=== PATIENT | female | born 1995 | race Caucasian/White ===

== ENCOUNTER 2023-05-15 16:06 | Emergency (ER) | payer OTHER, SELFPAY ==
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
[2023-05-15 16:20] VITALS: BP 141/87; PULSE 119; RESP 20; TEMP 36.8; O2SAT 100
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
== END 2023-05-15 17:40 | disposition home or self-care (01) ==
PROVIDERS: Emergency Provider Registered Nurse
DX: S22.32XA Fracture of one rib, left side, initial encounter for closed fracture (principal); S40.012A Contusion of left shoulder, initial encounter; S20.223A Contusion of bilateral back wall of thorax, initial encounter; S40.021A Contusion of right upper arm, initial encounter; S20.212A Contusion of left front wall of thorax, initial encounter; S00.83XA Contusion of other part of head, initial encounter; Y04.2XXA Assault by strike against or bumped into by another person, initial encounter; F17.290 Nicotine dependence, other tobacco product, uncomplicated; F41.9 Anxiety disorder, unspecified
CPT/HCPCS: 71111; 73000; 99204; G0463

== ENCOUNTER 2024-09-01 12:41 | Emergency (ER) | payer BC, SELFPAY ==
--- OUTSIDE RECORDS SUMMARY | 2024-09-01 12:43 | XMS_ITS | Clinical Summary ---
Author Organization [facility] Address [address] [place] [address] Care Team Providers Care Materials Manager Name Role Phone Campos Brooke MD Unavailable Zechariah Olea MD Unavailable [phone] Darcy Barajas NP Primary Care Provider [phone] Allergies Active Allergy Reactions Criticality Noted Date Comments Amoxicillin Rash Medium 08/31/2017 Sulfamethoxazole-Trimethopri m Rash Medium 01/17/2020 Lamotrigine Unknown 10/22/2019 [place] Anaphylaxis,Chest tightness,Hives,Itching,R sahil,Shortness of breath,Swelling,Swollen tongue High 08/01/2019 [place] Extract Rash Medium 10/20/2019 Medications ALPRAZolam (XANAX) 1 mg tablet 2 Active methylphenidate HCl (RITALIN) 20 mg tablet Take 1 tablet (20 mg total) by mouth 2 (two) times a day 60 tablet 5 Active methylphenidate HCl (RITALIN) 20 mg tablet Take 1 tablet (20 mg total) by mouth 2 (two) times a day 60 tablet 5 09/01/19 25 Discontinu ed(Reorder ) Active Problems Problem Noted Date Diagnosed Date Narcolepsy and cataplexy 05/21/2023 Migraine without aura and wi th status migrainosus, not intractable 05/21/2023 Hypertension 05/20/2020 Overview (07/02/2020): 24 hr protein 480 Influenza vaccine refused 02/12/2020 Folliculitis 02/12/2020 Assessment & Plan (02/12/2020 5:45 PM CDT): Referred to dermatology per patient's request. 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 deficiency due to repeated infections and inflammatory reactions Avoid Vaping until completely healed Cheek mass 11/29/2019 Assessment & Plan (01/16/2020 2:13 PM CDT): Continue Doxycycline Continue Peridex Take Probiotic 4 hours in between antibiotics Zofran as needed Assessment & Plan (11/29/2019 5:05 PM CDT): Excision intraorally of 1 cm x 1 cm left cheek mass Risks and complications: Anesthesia, bleeding, infection, benign versus malignant pathology, recurrence of lesion, injury to arteries, nerves and veins, scarring and need for further treatment Facial abscess 10/30/2019 Assessment & Plan (11/29/2019 11:44 AM CDT): Excision intraorally of 1 cm x 1 cm left cheek mass Risks and complications: Anesthesia, bleeding, infection, benign versus malignant pathology, recurrence of lesion, injury to arteries, nerves and veins, scarring and need for further treatment Assessment & Plan (10/30/2019 7:42 AM CDT): Slowly improving. Referred to plastic surgeon for further evaluation. Vitamin D deficiency 04/20/2019 Assessment & Plan (08/01/2019 4:32 PM CDT): Consider trying vitamin D in a different form such as gummies. Assessment & Plan (04/20/2019 8:55 AM ELOCUTION TEACHER): Rx given, repeat lab in 8 weeks. BMI 20.0-20.9, adult 04/20/2019 Resolved Problems Problem Noted Date Diagnosed Date Resolved Date Unintentional weight loss 04/20/2019 Assessment & Plan (04/20/2019 8:56 AM ELOCUTION TEACHER): Most likely secondary to medications and the fact that she's an avid runner. Snack throughout the day if possible. 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 Knee pain 02/04/2011 04/20/2019 Immunizations Immunization Administration Dates Next Due DTP / HiB 1995,1995,1995 DTaP 12/31/2000,09/12/1996 HPV, Quadrivalent 06/07/2013,03/23/2013 Hep A, Pediatric 03/23/2013 Hep B, Adolescent or Pediatric 07/11/2010,1995,1995 Hep B, Unspecified 1995 HiB 06/20/1996 IPV 12/31/2000 Influenza, Quadrivalent, Spl it, Intramuscular 03/11/2009,03/12/2008 Influenza, Split 03/11/2009,03/12/2008 Influenza, Unspecified 03/13/2019(Deferr ed: Patient Refused),03/06/2019,02/28/2018, 017 MMR 12/31/2000,04/19/1997,06/20/1996 Meningococcal Conjugate (Menveo) 09/03/2015 Meningococcal MCV4, Unspecified 11/07/2007 Meningococcal MCV4P (Menactra) 11/07/2007 OPV 09/12/1996,1995,1995 Tdap 08/14/2020,01/24/2016 Surgical History Surgery Date Site/Laterality Comments KNEE SURGERY KNEE ARTHROSCOPY TONSILLECTOMY WISDOM TOOTH EXTRACTION ABCESS DRAINAGE 05/17/2019 - 05/16/2020 face Medical History Medical History Date Comments Migraine Anxiety Depression Jaundice Pneumonia Allergic rhinitis Urinary tract infection PONV (postoperative nausea and vomiting) Allergies Elbow fracture Finger fracture Narcolepsy Recurrent sinus infections Bipolar disorder (HCC) Family History Medical History Relation Name Comments Cancer Brother Diabetes Father Hypertension Father Cancer Maternal Grandfather Diabetes Maternal Grandfather Hypertension Maternal Grandfather Cancer Mother Hypertension Mother Migraines Mother Hypertension Mother's Sister Migraines Mother's Sister Seizures Mother's Sister Relation Name Status Comments Brother Father Alive Maternal Grandfather Mother Alive Mother's Sister Social History Tobacco Use Types Packs/Day Years Used Date Smoking Tobacco: Former Vaping Smokeless Tobacco: Never Tobacco Cessation:Counseling Given: Not Answered Comments:Vapes Alcohol Use Standard Drinks/Week Comments Yes 0 (1 standard drink = 0.6 oz pur e alcohol) PHQ-2 Answer Date Recorded PHQ-2 Total Score (If total score is 3 or more points, staff should administer the PHQ-9) 0 02/12/2020 Comments Unknown Sex and Gender Information Value Date Recorded Sex Assigned at Not on file Legal Sex Female 11:29 PM ELOCUTION TEACHER Gender Identity Female 07/21/2021 12:57 PM ELOCUTION TEACHER Sexual Orientation Straight 07/02/2019 7: 20 PM ELOCUTION TEACHER Obstetrics History Para Term AB IAB SAB Ectopic Multiple Livin g Live Births 1 Date Outcome GA Total Labor Labor/2nd/3rd Weight Sex Type Anes PTL Colette A1 A5 Name Clin Last Filed Vital Signs Vital Sign Reading Time Taken Comments Blood Pressure 121/83 04/04/2024 8:58 AM ELOCUTION TEACHER Pulse 80 04/04/2024 8:58 AM ELOCUTION TEACHER Temperature 36.7 C (98.1 F) 04/20/2023 6:29 PM ELOCUTION TEACHER Respiratory Rate 18 05/21/2023 11:04 AM ELOCUTION TEACHER Oxygen Saturation 98% 04/04/2024 8:58 AM ELOCUTION TEACHER Inhaled Oxygen Concentration - - Weight 59 kg (130 lb) 04/04/2024 8:58 AM ELOCUTION TEACHER Height 157.5 cm (5' 2 ) 04/04/2024 8:58 AM ELOCUTION TEACHER Body Mass Index 23.78 04/04/2024 8:58 AM ELOCUTION TEACHER Plan of Treatment Health Maintenance Due Date Last Done Comments Hepatitis C Screening 1995 HPV Vaccines (3 - 3-dose series) 09/20/2013 06/07/2013, 03/23/2013 Cervical Cancer Screening 08/31/2018 08/31/2017 Regular Well Visit/Exam 18-64 07/31/2020 08/01/2019 Depression Screening 02/11/2021 02/12/2020, 10/26/2019, 08/01/2019, Additional history exists Influenza Vaccine (Season Ended) 2025 03/06/2019, 02/28/2018, 01/28/2017, Additional history exists DTaP/Tdap/Td Vaccine (9 - Td or Tdap) 08/14/2030 08/14/2020, 01/24/2016, 11/20/2005, Additional history exists Hepatitis B Screening Completed 07/11/2010 , 1995, 1995, Additional history exists Pneumococcal vaccine <65 Aged Out No longer eligible based on patient's age to complete this topic Varicella Vaccines Discontinued Procedures Procedure Name Priority Date/Time Associated Diagnosis Comments PAP SMEAR WITH HPV Routine 08/31/2017 from Last 3 Months or Most Recently Relevant to Health Maintenance Results * PAP SMEAR WITH HPV (08/31/2017) Pap smear Normal Historical Provider HEALTH MAINTENANCE Final Result from Last 3 Months or Most Recently Relevant to Health Maintenance Insurance [facility] [employer] Care Teams Materials Manager Relationship Specialty Start Date End Date Darcy Barajas [address] [place] [address] PCP - General Family Medicine 04/04/24 Campos Brooke MD Consulting Physician Neurology 07/21/21 Zechariah Olea MD [address] [place] [id number] Referring Physician Obstetrics and Gynecology 07/21/21
--- OUTSIDE RECORDS SUMMARY | 2024-09-01 12:43 | XMS_ITS | Clinical Summary ---
Author Organization [facility] Address [address] [place] [address] Phone Care Team Providers Care Clinical Support Associate Name Role Phone Darcy Barajas TOY ASSEMBLY SUPERVISOR, FRONT DESK ADMINISTRATOR Primary Care Provider + Allergies Active Allergy Reactions Criticality Noted Date Comments Amoxicillin Rash Medium 08/31/2017 Codeine Anaphylaxis High 08/31/2017 Lamotrigine Unknown 10/22/2019 [place] Extract Rash,Anaphylaxis,Hiv e s,Itching,Shortness of Breath,Swelling High 08/01/2019 Other reaction(s): Chest tightness, Swollen tongue, Urticaria Sulfa Antibiotics Rash High 04/18/2020 Sulfamethoxazole-Trime thoprim Rash Medium 01/17/2020 Medications ALPRAZolam (XANAX) 1 MG Tablet 4 Active amphetamine-dex troamphetamine (ADDERALL) 20 MG Tablet Take 20 mg by mouth. 4 Active Drospirenone-Et hinyl Estradiol 3-0.03 MG TabletIndicatio ns:Dysmenorrhea Take 1 Tablet by mouth daily. Indications: Pain During Periods 28 Tablet 4 Active fluticasone (FLONASE) 50 MCG/ACT SuspensionIndic ations:Seasonal allergies 1-2 Sprays by Nasal route daily. 1-2 sprays each nostril daily for nasal congestion and allergies. 15.8 mL 4 Active Active Problems Problem Noted Date Diagnosed Date Anxiety 07/19/2023 Immunizations Immunization Administration Dates Next Due [id number] [place] MCV4, Unspecified Formulation 10/16 DTAP VACCINE 12/31/2000,09/12/1996 DTP-Hib 1995,1995,1995 Hepatitis A Vaccine, Pediatr ic/adolescent, 2 Dose Schedule 03/23/2013 Hepatitis B Vaccine, Pediatric/adolescent 2010,1995,1995 Hepatitis B Vaccine,unspecified Formulation 02/16 Hib Vaccine,unspecified Formulation 06/20/1996 Human Papillomavirus Vaccine (HPV), quadrivalent 06/07/2013,03/23/2013 Inactivated Polio Vaccine 12/31/2000 Influenza Vaccine,unspecified Formulation 2018,02/28/2018,01/28/2017 MMR Vaccine 12/31/2000,04/19/1997,06/20/1996 Meningococcal MCV4O 09/03/2015 OPV 09/12/1996,1995,1995 TDAP Vaccine 08/14/2020,11/20/2005 Social History Tobacco Use Types Packs/Day Years Used Date Smoking Tobacco: Never Smokeless Tobacco: Never Alcohol Use Standard Drinks/Week Comments Not Currently 0 (1 standard drink = 0.6 oz pur e alcohol) [facility] Ufreeities Answer Date Recorded In the past 12 months has [employer], gas, oil, or water [employer] threatened to shut off services in your home? Yes 07/08/2023 Social Connection and Isolat ion Panel [NHANES] Answer Date Recorded In a typical week, how many times do you talk on the phone with family, friends, or neighbors? More than three times a week 07/08/2023 How often do you get togethe r with friends or relatives? Three times a week 07/08/2023 How often do you attend chur ch or baptist services? 1 to 4 times per year 07/08/2023 Do you belong to any clubs o r organizations such as christian groups, unions, fraternal or athletic groups, or school groups? No 07/08/2023 How often do you attend meet ings of the clubs or organizations you belong to? Never 07/08/2023 Are you , , di vorced, , never , or living with a partner? 07/08/2023 AUDIT-C Answer Date Recorded Q1: How often do you have a drink containing alc ohol? Monthly or less 07/08/2023 Q2: How many drinks containi ng alcohol do you have on a typical day when you are drinking? 1 or 2 07/08/2023 Q3: How often do you have si x or more drinks on one occasion? Less than monthly 07/08/2023 Overall Financial Resource Strain (CARDIA) Answe r Date Recorded How hard is it for you to pa y for the very basics like food, housing, medical care, and heating? Somewhat hard 07/08/2023 PHQ-2 Answer Date Recorded Total Score - Questions 1-9 18 /0 08/2023 [facility] - Occupational Stress Questionnaire Answer Date Recorded Do you feel stress - tense, restless, nervous, or anxious, or unable to sleep at night because your mind is troubled all the time - these days? Rather much 07/08/2023 Exercise Vital Sign Answer Date Recorde d On average, how many days pe r week do you engage in moderate to strenuous exercise (like a brisk walk)? 3 days 07/08/2023 On average, how many minutes do you engage in exercise at this level? 40 min 07/08/2023 Hunger Vital Sign Answer Date Recorded Within the past 12 months, y ou worried that your food would run out before you got the money to buy more. Sometimes true Within the past 12 months, t he food you bought just didn't last and you didn't have money to get more. Sometimes true PRAPARE - Transportation Answer Date Re corded In the past 12 months, has l ack of transportation kept you from medical appointments or from getting medications? No 06/18 In the past 12 months, has l ack of transportation kept you from meetings, work, or from getting things needed for daily living? No 07/08/2023 Housing Stability Vital Sign Answer Dhaval e Recorded In the last 12 months, was t here a time when you were not able to pay the mortgage or rent on time? Yes 07/08/2023 In the last 12 months, how many places have you lived? 1 07/08/2023 In the last 12 months, was t here a time when you did not have a steady place to sleep or slept in a fci (including now)? No 07/08/2023 Sexually Active Control Partners Comments Not Currently Male Comments No Sex and Gender Information Value Date Recorded Sex Assigned at Not on file Legal Sex Female 10:01 PM CDT Gender Identity Not on file Sexual Orientation Not on file Last Filed Vital Signs Vital Sign Reading Time Taken Comments Blood Pressure 106/74 07/12/2023 10:04 AM LOAD CHECKER Pulse 86 07/12/2023 10:04 AM LOAD CHECKER Temperature 36.3 C (97.4 F) 07/12/2023 10:04 AM LOAD CHECKER Respiratory Rate 16 07/12/2023 10:04 AM LOAD CHECKER Oxygen Saturation 100% 07/12/2023 10:04 AM LOAD CHECKER Inhaled Oxygen Concentration - - Weight 54.7 kg (120 lb 9.6 oz) 07/12/2023 10:04 AM LOAD CHECKER Height 162.6 cm (5' 4 ) 07/12/2023 10:04 AM LOAD CHECKER Body Mass Index 20.7 07/12/2023 10:04 AM LOAD CHECKER Plan of Treatment Health Maintenance Due Date Last Done Comments Hepatitis C Virus (HCV) Screening 1995 Pap Smear 2016 SARS-COV-2 Immunization ( season) 2024 Influenza Immunization (Season Ended) 2025 03/06/2019, 02/28/2018, 01/28/2017, Additional history exists DTaP/Tdap/Td Immunization (9 - Td or Tdap) 08/14/2030 08/14/2020, 01/24/2016, 11/20/2005, Additional history exists Respiratory Syncytial Virus (RSV) Immunization (Adult) (1 - 1-dose 75+ series) 2070 Hepatitis B Immunization Completed 011, 1995, 1995, Additional history exists Human Papillomavirus (HPV) Immunization Discontinued 06/07/2013, 03/23/2013 Meningococcal Immunization (ACWY) Aged Out 09/03/2015, 11/07/2007 No longer eligibl e based on patient's age to complete this topic Pneumococcal Immunization Combined Aged Out No longer eligible based on patient's age to complete this topic Rotavirus Immunization Aged Out No lo nger eligible based on patient's age to complete this topic Care Teams Clinical Support Associate Relationship Specialty Start Date End Date Darcy Barajas, TOY ASSEMBLY SUPERVISOR, FRONT DESK ADMINISTRATOR [address] [place] [address] PCP - General Advanced Practice Nurse 07/12/23
--- OUTSIDE RECORDS SUMMARY | 2024-09-01 12:43 | XMS_ITS | Referral Summary ---
Author Organization [facility] Address [address] [place] [address] Care Team Providers Care Body Recall Instructor Name Role Phone Campos Brooke MD Unavailable Zechariah Olea MD Unavailable [phone] Darcy Barajas NP Primary Care Provider [phone] Allergies Active Allergy Reactions Criticality Noted Date Comments Amoxicillin Rash Medium 08/31/2017 Sulfamethoxazole-Trimethopri m Rash Medium 01/17/2020 Lamotrigine Unknown 10/22/2019 [place] Anaphylaxis,Chest tightness,Hives,Itching,R sahil,Shortness of breath,Swelling,Swollen tongue High 08/01/2019 [place] Extract Rash Medium 10/20/2019 Medications ALPRAZolam (XANAX) [...] gummies. Assessment & Plan (04/20/2019 8:55 AM COIL BUILDER): Rx given, repeat lab in 8 weeks. BMI 20.0-20.9, adult 04/20/2019 Resolved Problems Problem Noted Date Diagnosed Date Resolved Date Unintentional weight loss 04/20/2019 Assessment & Plan (04/20/2019 8:56 AM COIL BUILDER): Most likely secondary to medications and the [...] MCV4P (Menactra) 11/07/2007 OPV 09/12/1996,1995,1995 Tdap 08/14/2020,01/24/2016 Social History Tobacco Use Types Packs/Day Years [...] on file Legal Sex Female 11:29 PM COIL BUILDER Gender Identity Female 07/21/2021 12:57 PM COIL BUILDER Sexual Orientation Straight 07/02/2019 7: 20 PM COIL BUILDER Last Filed Vital Signs Vital Sign Reading Time Taken Comments Blood Pressure 121/83 04/04/2024 8:58 AM COIL BUILDER Pulse 80 04/04/2024 8:58 AM COIL BUILDER Temperature 36.7 C (98.1 F) 04/20/2023 6:29 PM COIL BUILDER Respiratory Rate 18 05/21/2023 11:04 AM COIL BUILDER Oxygen Saturation 98% 04/04/2024 8:58 AM COIL BUILDER Inhaled Oxygen Concentration - - Weight 59 kg (130 lb) 04/04/2024 8:58 AM COIL BUILDER Height 157.5 cm (5' 2 ) 04/04/2024 8:58 AM COIL BUILDER Body Mass Index 23.78 04/04/2024 8:58 AM COIL BUILDER Plan of Treatment Not on file Procedures Procedure Name Priority Date/Time Associated Diagnosis Comments PAP SMEAR WITH HPV Routine 08/31/2017 from Last 3 Months or Most Recently Relevant to Health Maintenance Results * PAP SMEAR WITH HPV (08/31/2017) Pap smear Normal Historical Provider HEALTH MAINTENANCE Final Result from Last 3 Months or Most Recently Relevant to Health Maintenance [place] [employer] [place] [employer] [place] Care Teams Body Recall Instructor Relationship Specialty Start Date End Date Darcy Barajas [address] [place] [address] PCP - General Family Medicine 04/04/24 Campos Brooke MD Consulting Physician Neurology 07/21/21 Zechariah Olea MD [address] [address] Referring Physician Obstetrics and Gynecology 07/21/21
[2024-09-01 12:56] VITALS: BP 152/82; PULSE 110; RESP 16; TEMP 36.6; O2SAT 100
--- NOTE | 2024-09-01 13:48 | ED.URI ---
HPI - URI/Sore Throat General Chief Complaint: Upper Respiratory Infection Stated Complaint: Sinus Problem Time Seen by Provider: 09/01/24 13:48 Source: patient, RN notes reviewed and old records reviewed Mode of arrival: ambulatory Limitations: no limitations History of Present Illness HPI Narrative: 29 year old female who presents to [facility] with complaints of sinus congestion and drainage for about a month which she reports has greenish tint. Patient reports that she does have some sinus pressure in her face but denies any known fevers chills or sweats or any sore throat or any ear pain. Patient reports that she has been taking Flonase, Mucinex, and some Advil decongestant OTC for her symptoms with no resolution in symptoms.Patient reports that she did home COVID test which was negative yesterday. MD elicited complaint: rhinorrhea, nasal congestion and sinus pain Onset (ago): month(s) (1) Consistency: constant Pain scale (0-10): 6 Able to tolerate fluids by mouth: Yes Treatments prior to arrival: other (Advil decongestant, Mucinex, Flonase) Related Data Home Medications ?Medication ?Instructions ?Recorded ?Confirmed ?Last Taken ?Type alprazolam 1 mg tablet 1 mg PO BID 05/15/23 05/15/23 Unknown History alprazolam 2 mg tablet mg 09/01/24 Unknown History methylphenidate HCl 20 mg tablet mg 09/01/24 Unknown History Allergies Allergy/AdvReac Type Severity Reaction Status Date / Time codeine Allergy Unknown Rash Verified 09/01/24 12:55 strawberry Allergy Unknown Swelling Verified 09/01/24 12:55 amoxicillin AdvReac Unknown Nausea and Verified 09/01/24 12:55 Vomiting Review of Systems Review of Systems: CONSTITUTIONAL: Reports malaise,no chills, sweats, or fever. EYES: Denies visual changes, redness, or discharge. ENT: Reports rhinorrhea, congestion, sinus pain,no otalgia and no sore throat. CARDIOVASCULAR: Denies chest pain, palpitations, or edema. RESPIRATORY: Reports no cough.? Denies dyspnea. GASTROINTESTINAL: Denies abdominal pain, nausea, vomiting, diarrhea SKIN: Denies rash or itching. MUSCULOSKELETAL: Denies myalgia. NEUROLOGIC:Reports occasional headache. All systems reviewed & are unremarkable except as noted in HPI and below PMFSH Past Medical History Medical History (Updated 09/02/24 @ 10:29 by Rebekah Rocha NP) Narcolepsy No pertinent family history Anxiety Kidney stone Surgical History Surgical History Hx of tonsillectomy Social History Social History (Updated 09/02/24 @ 10:26 by Rebekah Rocha NP) Smoking status: Current every day smoker Tobacco type: e-cigarettes/vaping Alcohol use details: none Substance use: current Substance use type: marijuana Last use: occasional Living arrangements: with family Gender identity (if verbalized by the patient): Female Comments At time of signature, agree with nursing past medical, surgical, social and family history. There is no relevant family history pertinent to the presenting complaint Exam Narrative: GENERAL: Well-appearing, well-nourished, and in no acute distress. HEAD: Normocephalic EYES: PERRLA, conjunctivae clear ENT: Nares irritated and red, turbinates edematous and erythematous, greenish tinted discharge, sinus pressure. Mucous membranes moist. TM pearly busch with dull light reflex bilaterally; no tragal tenderness. Oropharynx erythematous without lesions. Tonsils not present and throat without exudate, no drooling, no hoarseness, no trismus, uvula midline.post nasal drainage NECK: Supple. No lymphadenopathy CHEST: Clear to auscultation, breath sounds equal. No wheezing, rhonchi, rales, or stridor. No respiratory distress, speaks in full sentences.no acute cough SAO2 100% on room air HEART: Regular rate and rhythm. No murmur heard. SKIN: Warm, dry, no rash. NEURO: Alert and oriented x3. PSYCH: Normal mood and affect Course Course Emergency Course: Patient is aware of diagnosis, understands and agrees to treatment plan.? Anticipatory guidance given.? Patient agrees to follow-up as directed and is aware of reasons to seek care at the emergency department. Portions of this record may have been created with voice recognition software Level of Care: Express Care Visit Vital Signs Vital signs: Vital Signs Temperature 36.6 C 09/01/24 12:56 Pulse Rate 110 H 09/01/24 12:56 Respiratory Rate 16 09/01/24 12:56 Blood Pressure 152/82 H 09/01/24 12:56 Pulse Oximetry 100 09/01/24 12:56 Oxygen Delivery Room Air 09/01/24 12:56 Temperature 36.6 C 09/01/24 12:56 Pulse Rate 110 H 09/01/24 12:56 Respiratory Rate 16 09/01/24 12:56 Blood Pressure 152/82 H 09/01/24 12:56 Pulse Oximetry 100 09/01/24 12:56 Oxygen Delivery Room Air 09/01/24 12:56 Reviewed MDM - URI/Sore Throat MDM Narrative Medical decision making narrative: Differential diagnosis considered: Cabrera virus, strep pharyngitis, allergic rhinitis, upper respiratory tract infection, sinusitis, rhinosinusitis, nasopharyngitis. viral pharyngitis, otitis media, otitis externa, pneumonia, bronchitis, viral cough syndrome, viral syndrome, and influenza.? Exam findings show no acute concerns or changes; patient is non-toxic appearing and is in no distress.? Patient is appropriate for outpatient treatment and follow-up. Differential Diagnosis Differential diagnosis: Likely upper respiratory infection, sinusitis, viral infection and other (allergic rhinitis) Medical Records Attestation: I reviewed the patient's medical records. Lab Data Attestation: I reviewed the patient's lab results. Critical Care Time Critical Care Time Critical Care Time: No Discharge Plan Discharge Clinical Impression: Sinusitis Qualifiers: Sinusitis location: pansinusitis Chronicity: acute Recurrence: not specified as recurrent Qualified Code(s): J01.40 - Acute pansinusitis, unspecified Patient Disposition: Home Condition: Stable Instructions: Antibiotic Form, Sinusitis (ED) Additional Instructions: Increase fluids especially juices and water [id number] cough and cold medicine of your choice for your symptoms Tylenol or ibuprofen for any fever pain Zyrtec Claritin or Denise daily heat to the face 20-30 minutes 4-6 times a day for pain Salt water gargles, throat lozenges or throat sprays as desired Antibiotic as directed--finished the medication If your symptoms persist, change or worsen significantly before you can contact your personal physician then please, without delay, go to the emergency department for further evaluation. Follow-up with PCP in 7-10 days or sooner if needed Follow up with PCP soon in regards to your blood pressure which is elevated above threshold for referral. Blood pressure above 120/80 may indicate pre-hypertension. 152/82 Patient Language: Luxembourgish Prescriptions: New doxycycline monohydrate 100 mg capsule 100 mg PO BID Qty: 14 0RF Rx Instructions: Take with food No Action alprazolam 1 mg tablet 1 mg PO BID methylphenidate HCl 20 mg tablet alprazolam 2 mg tablet Follow-up/Referrals: Darcy Barajas RN [Primary Care Provider] - Time of Disposition: 13:49 Quality [place] Coma Scale Eyes: Open Verbal: Oriented and Alert Motor: Follows Commands Radha Coma Total Score: 15
== END 2024-09-01 13:52 | disposition home or self-care (01) ==
PROVIDERS: Emergency Provider Registered Nurse
DX: J01.40 Acute pansinusitis, unspecified (principal); F17.290 Nicotine dependence, other tobacco product, uncomplicated; F12.90 Cannabis use, unspecified, uncomplicated; F41.9 Anxiety disorder, unspecified
CPT/HCPCS: 99213; G0463